=== PATIENT | female | born 1995 | race Caucasian/White ===

== ENCOUNTER 2021-06-19 07:13 | Inpatient (IN) | payer BC, OTHER ==
[2021-06-19 08:10] LABS: HEMOGLOBIN 13.5 gm/dl (12.3-15.3); RED BLOOD COUNT 4.1 M/UL (4.00-5.10); WHITE BLOOD COUNT 17.4 K/UL (4.5-11.0)
[2021-06-19] MEDS ORDERED: DOCUSATE SODIU100 MG PO (10:53)
[2021-06-19] MEDS ORDERED: HYDROCODON-ACE1 EAC4 PO (10:53)
[2021-06-19] MEDS ORDERED: IBUPROFEN600 MG PO (10:53)
[2021-06-20 06:48] LABS: HEMOGLOBIN 11.3 gm/dl (12.3-15.3)
== END 2021-06-20 19:05 | disposition home or self-care (01) | DRG 807 ==
LOC: GENOP 07:13 → OB 07:44
PROVIDERS: ADMIT Obstetrics & Gynecology
PROC: 10E0XZZ Delivery of Products of Conception, External Approach (ICD-10-PCS; principal; 2021-06-19)
PROC: 10907ZC Drainage of Amniotic Fluid, Therapeutic from Products of Conception, Via Natural or Artificial Opening (ICD-10-PCS; 2021-06-19)
PROC: 0HQ9XZZ Repair Perineum Skin, External Approach (ICD-10-PCS; 2021-06-19)
PROC: 4A1HXCZ Monitoring of Products of Conception, Cardiac Rate, External Approach (ICD-10-PCS; 2021-06-19)
DX: O99.62 Diseases of the digestive system complicating childbirth (principal); Z37.0 Single live birth; Z3A.38 38 weeks gestation of pregnancy; K21.9 Gastro-esophageal reflux disease without esophagitis; O99.52 Diseases of the respiratory system complicating childbirth; Z20.822 Contact with and (suspected) exposure to COVID-19; J45.909 Unspecified asthma, uncomplicated; O70.0 First degree perineal laceration during delivery
CPT/HCPCS: 36415; 51702; 82800; 85014; 85018; 85025; 86900; 86901; 90715; J2590; J2795; J7120; U0002